=== PATIENT | male | born 1980 | race Native Hawaiian/Other Pacific Islander ===

== ENCOUNTER 2016-09-02 08:51 | Emergency (ER) | payer OTHER ==
[~2016-09-02] VITALS: Ht 185.4 cm; Wt 111.1 kg
[~2016-09-02 08:51] MED LIST: ACET-689 PO; CYCL10TA35 PO; LISI10TA11 PO; PANT40TA PO; REMERON30 MG PO; VENLAFAXINE150 M1 PO
[2016-09-02 09:20] VITALS: BP 155/79; TEMP 98.2
== END 2016-09-02 11:32 | disposition home or self-care (01) ==
LOC: ED 08:51
DX: S81.812A Laceration without foreign body, left lower leg, initial encounter (principal)
CPT/HCPCS: 96372; 99283; J1885

== ENCOUNTER 2018-02-07 11:23 | Outpatient (CLI) | payer OTHER ==
[2018-02-07 11:56] LABS: PLATELET COUNT 207 K/uL (142-355)
[2018-02-07 12:20] LABS: POTASSIUM 3.6 mmol/L (3.6-5.2)
== END 2018-02-07 19:50 | disposition home or self-care (01) ==
LOC: LABW 11:23
PROVIDERS: Emergency Medicine
DX: I10 Essential (primary) hypertension (principal); G89.29 Other chronic pain; G47.00 Insomnia, unspecified; F41.9 Anxiety disorder, unspecified; F32.9 Major depressive disorder, single episode, unspecified; Z72.0 Tobacco use
CPT/HCPCS: 36415; 80053; 80307; 81000; 83735; 84403; 84439; 84443; 85027

== ENCOUNTER 2018-02-17 09:31 | Outpatient (CLI) | payer OTHER | END 2018-02-17 19:43 | disposition home or self-care (01) | LOC: MRI 09:31 | DX: M54.5 Low back pain (principal); M54.17 Radiculopathy, lumbosacral region ==

== ENCOUNTER 2022-09-17 20:53 | Emergency (ER) | payer OTHER ==
[~2022-09-17] VITALS: Ht 185.4 cm; Wt 99.8 kg
[2022-09-17 21:00] VITALS: TEMP 98.7
[2022-09-17 21:30] LABS: PLATELET COUNT 267 K/uL (142-355)
[2022-09-17 21:49] LABS: POTASSIUM 3.8 mmol/L (3.6-5.2); SODIUM 141 mmol/L (136-145)
[2022-09-18 01:20] VITALS: BP 131/77
== END 2022-09-18 01:20 | disposition home or self-care (01) ==
LOC: ED 20:53
PROVIDERS: Family Medicine
DX: F32.A Depression, unspecified (principal); F41.9 Anxiety disorder, unspecified; Z02.79 Encounter for issue of other medical certificate
CPT/HCPCS: 36415; 80053; 80143; 80179; 80307; 81000; 85027; 93005; 99283